=== PATIENT | female | born 1965 | race Caucasian/White ===

== ENCOUNTER 2016-11-08 06:31 | Day surgery (SDC) | payer BC ==
[~2016-11-08 06:31] MED LIST: Lactated Ringers 1,000 ML IV SCH; Lidocaine 1%/Sod Bicarbonate in NS 8.4% 1 ML Syringe PRN; Sodium Chloride 0.9% 10 ML Syringe FLUSH PRN
[2016-11-08] MEDS ORDERED: Lidocaine 1% 30 ML SDV ONE (06:42)
[2016-11-08] MEDS ORDERED: Bupivacaine 0.25% 30 ML SDV ONE (06:42)
--- NOTE | 2016-11-08 06:55 | PCM.PREANE ---
Preanesthetic Assessment - Anesthesia/Transfusion/Family Hx Type of Transfusion Reactions: Reports: Unknown - Physical Assessment Height: 1.65 m Weight: 71.849 kg - Lab Values: Laboratory Last Values MRSA (PCR) Negative 10/23/16 09:30 - Allergies Allergies/Adverse Reactions: Allergies Allergy/AdvReac Type Severity Reaction Status Date / Time No Known Allergies Allergy Verified 09/13/16 08:14 PreAnesthesia Questionnaire HEENT History: Reports: Impaired vision Cardiovascular History: Reports: None Respiratory History: Reports: None Gastrointestinal History: Genitourinary History: Reports: None GRINDER HARDBOARD History: Reports: None Musculoskeletal History: Neurological History: Reports: None Psychiatric History: Reports: None Endocrine/Metabolic History: Reports: None Hematologic History: Reports: None Immunologic History: Reports: None Oncologic (Cancer) History: Reports: None Dermatologic History: Reports: None - Past Surgical History HEENT Surgical History: Reports: Oral surgery GI Surgical History: Reports: Appendectomy, Cholecystectomy, Colonoscopy Musculoskeletal Surgical History: Reports: Other (see below) Other Musculoskeletal Surgeries/Procedures:: lumbar spine fusion - SUBSTANCE USE Smoking Status *Q: Never Smoker Second Hand Smoke Exposure: No Days Per Week of Alcohol Use: 0 Recreational Drug Use History: No - HOME MEDS Home Medications: Home Meds Multivitamin with Minerals [Multiple Vitamin] 1 tab PO DAILY 10/04/15 [History] Hydrocodone/Acetaminophen [[place] 5-325] 1 - 2 each PO Q6H PRN #20 tablet [Rx] - CURRENT (IN HOUSE) MEDS Current Meds: Current Medications Lactated Ringer's (Ringers, Lactated) 1,000 mls @ 125 mls/hr IV ASDIRECTED VAIBHAV Stop: 11/08/16 23:00 Lidocaine/Sodium Bicarbonate (Buffered Lidocaine 1% In Ns 8.4%) 0.25 ml .XX ONETIME PRN PRN Reason: Prior to IV Start Stop: 11/08/16 18:00 Sodium Chloride (Saline Flush) 10 ml FLUSH ASDIRECTED PRN PRN Reason: Keep Vein Open Stop: 11/08/16 18:00 Preanesthetic Assessment - ANESTHESIA/TRANSFUSION/FAMILY HX Anesthesia/Transfusion History: No Prior Transfusion(s), Prior Anesthesia (no prob) Type of Anesthesia Reaction: Denies: Allergy, Anesthesia Awareness, Excessive Somnolence, Excessive Nausea/Vomiting, Excessive Itching, Excessive Shivering, Malignant Hyperthermia, Malignant Hyperthermia, Family History, Pseudocholinesterase Deficiency, Pseudocholinesterase Deficiency, Family History of, Urinary Retention, Unknown, Other (see below) Family History of Anesthesia Reaction: No Intubation History: Unknown Type of Transfusion Reactions: Reports: Unknown - REVIEW OF SYSTEMS Constitutional: Reports: no symptoms [employer]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: numbness (left hand due to CTS.) Respiratory: Reports: no symptoms Cardiovascular: Reports: no symptoms GI: Reports: no symptoms Other: Reports: None - PHYSICAL ASSESSMENT HR: 70 O2 Sat by Pulse Oximetry: 99 RR: 16 BP: 105/59 Temp: 36.8 C Height: 1.65 m Weight: 71.849 kg NPO Status Date: 11/07/16 NPO Status Time: 20:00 ASA Class: 1 Mental Status: Alert & Oriented x3 Airway Class: Mallampati = 2 Dentition: Reports: Normal Dentition, Caries Thyro-Mental Finger Breadths: 3 Mouth Opening Finger Breadths: 3 ROM/Head Extension: Full Respiratory Status: lungs clear to auscultation bilaterally Cardiovascular Status: regular rate & rhythm, normal S1, S2, no murmur, blood pressure WNL - LAB Values: Laboratory Last Values MRSA (PCR) Negative 10/23/16 09:30 Reviewed and noted. - ALLERGIES Allergies/Adverse Reactions: Allergies Allergy/AdvReac Type Severity Reaction Status Date / Time No Known Allergies Allergy Verified 09/13/16 08:14 - ANESTHESIA PLAN Preop Beta Vargas: No Anesthesia Type Planned: MAC - ACKNOWLEDGEMENTS Pt an Appropriate Candidate for the Planned Anesthesia: Yes Alternatives and Risks of Anesthesia Discussed w Pt/Guardian: Yes Pt/Guardian Understands and Agrees with Anesthesia Plan: Yes
[2016-11-08] MEDS ORDERED: Propofol 200 MG/20 ML SDV ONE (07:12)
[2016-11-08] MEDS ORDERED: Ketorolac 30 MG/ML SDV ONE (07:12)
[2016-11-08] MEDS ORDERED: Lidocaine 1% 2 ML SDV ONE (07:12)
[2016-11-08] MEDS ORDERED: Ondansetron 4 MG/2 ML SDV ONE (07:12)
[2016-11-08] MEDS ORDERED: Midazolam 1 MG/ML 2 ML SDV ONE (07:13)
[2016-11-08] MEDS ORDERED: fentaNYL 100 MCG/2 ML SDV ONE (07:13)
[2016-11-08] MEDS ORDERED: Ondansetron 4 MG/2 ML SDV IVPUSH PRN (07:31)
--- NOTE | 2016-11-08 07:52 | PCM48HPAN ---
Post Anesthesia Note - EVALUATION WITHIN 48HRS OF ANESTHETIC Vital Signs in Normal Range: Yes Patient Participated in Evaluation: Yes Respiratory Function Stable: Yes Airway Patent: Yes Cardiovascular Function Stable: Yes Hydration Status Stable: Yes Pain Control Satisfactory: Yes Nausea and Vomiting Control Satisfactory: Yes Mental Status Recovered: Yes
[2016-11-08 08:14] VITALS: BP 92/58
[2016-11-08] MEDS ORDERED: fentaNYL 100 MCG/2 ML SDV IVPUSH PRN (08:40)
--- NOTE | 2016-11-18 20:12 | PCM.OPNOTE ---
- General Post-Op/Procedure Note Date of Surgery/Procedure: 11/08/16 Operative Procedure(s): left carpal tunnel release Pre Op Diagnosis: left median nerve compression neuropathy Post-Op Diagnosis: Same Anesthesia Technique: Local, MAC Primary Surgeon: Ameya Mccarthy Anesthesia Provider: Vero Quiroz [employer]: Zeina Woodard in mLs: 5 Complications: None Condition: Good
--- NOTE | 2016-11-18 20:46 | OR ---
DATE OF OPERATION: 11/08/2016 SURGEON: Ameya Mccarthy MD OPERATION PERFORMED: Left carpal tunnel release. PREOPERATIVE DIAGNOSIS: Left median nerve compression neuropathy. POSTOPERATIVE DIAGNOSIS: Left median nerve compression neuropathy. ANESTHESIA: Local MAC. ANESTHESIA PROVIDER: Vero Quiroz CRNA. FIELD STAFF: Zeina Woodard PA-C. ESTIMATED BLOOD LOSS: Less than 5 mL. COMPLICATIONS: None. CONDITION: Stable. DESCRIPTION OF PROCEDURE: The patient was identified in the preop holding area. Proper site was marked and identified by the surgeon. The patient was taken back to the operating theater, where after adequate anesthesia, the patient's left upper extremity had a nonsterile tourniquet applied, then sterilely prepped and draped in the usual sterile fashion. The patient did not receive antibiotics as it was not indicated for soft tissue hand procedure at this time. Left upper extremity was exsanguinated with an Esmarch. An Esmarch was used as a tourniquet on the forearm. A 1% lidocaine without epinephrine 0.25% Marcaine without epinephrine was then used to anesthetize the surgical incisional site using Goss cardinal line on the border of the fourth digit at this time. Once it was anesthetized, incision was made, taken down to the palmar cutaneous fascia. Palmar cutaneous fascia was then incised with a [place] blade. Transverse carpal ligament was then identified. A small rent was made in the transverse carpal ligament with a [place] blade. Republic elevator was then placed under the transverse carpal ligament distally. [place] blade was then used for resection of the transverse carpal ligament all the way distally making sure to stop short of palmar arch. At this time, there was found to be adequate release distally. Attention was turned proximally. A tenotomy scissor was used for release of the forearm fascia and transverse carpal ligament proximally making sure to keep the tips of ulnar protecting the palmar cutaneous branch of the median nerve. At this time, there was found to be adequate release both proximally and distally. Adequate saline was irrigated through the wound. A 4-0 nylon simple suture was used for closure of the skin. The patient tolerated the procedure well and sent to PACU in stable condition. MMODAL /[id number]
== END 2016-11-08 08:44 | disposition home or self-care (01) ==
LOC: JD.SDS 06:31
PROVIDERS: ATTEND Orthopaedic Surgery
DX: G56.12 Other lesions of median nerve, left upper limb (principal); Z90.49 Acquired absence of other specified parts of digestive tract; Z98.890 Other specified postprocedural states; Z79.899 Other long term (current) drug therapy
CPT/HCPCS: 64721; 81025; 87641; J1885; J2250; J2405; J3010; J7120; 01810; J2704; J3490